=== PATIENT | male | born 1980 | race Two or more races ===

== ENCOUNTER 2019-04-03 20:12 | Emergency (ER) | payer OTHER ==
[~2019-04-03] VITALS: Ht 175.3 cm; Wt 78.5 kg
--- NOTE | 2019-04-03 20:15 | NUR ---
PT [facility]J FROM THE [facility]RE[facility] FOR BIZARRE BEHAVIOR, PER REPORT TOOK GHB TODAY; PT VERBALLY RESPONSIVE, PT ON MONITOR, VSS, NAD NOTED, PENDING MD CHAMBERS
[2019-04-03] MEDS ORDERED: OLANZAPINE 10 MG VIAL IM ONE ×2 (20:30)
[2019-04-03] MEDS ORDERED: TDAP [DIPH/PERTUSSIS/TET] 0.5 ML VIAL IM ONE ×2 (20:30)
[2019-04-03] MEDS ORDERED: LORAZEPAM INJ 2 MG/ML VIAL ONE (20:52)
[2019-04-03] MEDS ORDERED: LORAZEPAM INJ 2 MG/ML VIAL IM ONE (21:00)
--- NOTE | 2019-04-04 06:31 | NUR ---
Patient given written and verbal discharge instructions. Patient verbalizes understanding of instructions. Patient is ambulatory with steady gait. Refuses offer of long-term placement. Patient given list of available shelters in surrounding area. IV removed. Catheter intact and site benign. Pressure and 4x4 applied to site. No bleeding noted.
[2019-04-04 06:32] VITALS: BP 122/70
== END 2019-04-04 06:32 | disposition home or self-care (01) ==
LOC: ER 20:14
DX: T41.295A Adverse effect of other general anesthetics, initial encounter (principal); R45.1 Restlessness and agitation; Z59.0 Homelessness; Y92.89 Other specified places as the place of occurrence of the external cause
CPT/HCPCS: 90471; 90715; 96372 ×2; 99291; J2060; J3490